=== PATIENT | female | born 1985 | race Caucasian/White ===

== ENCOUNTER 2020-08-29 23:54 | Emergency (ER) | payer BC ==
[~2020-08-29] VITALS: Ht 154.9 cm; Wt 64.4 kg
[2020-08-29 23:58] VITALS: BP 132/65
[2020-08-30] MEDS ORDERED: TDAP [DIPH/PERTUSSIS/TET] 0.5 ML VIAL IM ONE ×2 (00:08→00:30)
== END 2020-08-30 00:20 | disposition home or self-care (01) ==
LOC: ER 23:55
DX: S81.812A Laceration without foreign body, left lower leg, initial encounter (principal); W25.XXXA Contact with sharp glass, initial encounter; Y93.89 Activity, other specified; Y92.89 Other specified places as the place of occurrence of the external cause; Y99.8 Other external cause status
CPT/HCPCS: 90715

== ENCOUNTER 2021-06-14 15:51 | Emergency (ER) | payer BC ==
[~2021-06-14] VITALS: Ht 152.4 cm; Wt 75.3 kg
[2021-06-14] MEDS ORDERED: ONDANSETRON HCL/PF 4 MG/2 ML VIAL ONE (16:25)
[2021-06-14] MEDS ORDERED: KETOROLAC TROMETHAMINE INJ 30 MG/ML VIAL ONE (16:26)
[2021-06-14] MEDS ORDERED: ACETAMINOPHEN 325 MG TABLET ONE (16:26)
[2021-06-14] MEDS ORDERED: KETOROLAC TROMETHAMINE 15 MG/ML VIAL ONE (16:27)
[2021-06-14] MEDS ORDERED: ACETAMINOPHEN 325 MG TABLET PO ONE (16:30)
[2021-06-14] MEDS ORDERED: KETOROLAC TROMETHAMINE INJ 30 MG/ML VIAL IV ONE (16:30)
[2021-06-14] MEDS ORDERED: ONDANSETRON HCL/PF 4 MG/2 ML VIAL IV ONE (16:30)
[2021-06-14] MEDS ORDERED: IV NS 0.9% 1,000 ML BAG IV ONE (16:30)
--- NOTE | 2021-06-14 16:30 | NUR ---
Patient came in to the er c/o fever, recently had 1 week ago, breast discomfort. On room air, breathing evenly and unlabored. Connected to the monitor and pulse ox. kept comfortable, will continue to monitor accordingly.
[2021-06-14 16:43] LABS: BASOPHILS % (AUTO) 0.4 % (0.0-2.0); EOSINOPHILS % (AUTO) 0.3 % (0.0-6.0); HEMATOCRIT 35 % (33-45); HEMOGLOBIN 11.7 g/dL (11.5-14.8); LYMPHOCYTES # (AUTO) 0.4 K/uL (0.8-4.8); LYMPHOCYTES % (AUTO) 4.2 % (20.0-44.0); MEAN CORPUSCULAR HGB CONC 34 g/dl (31.0-36.0); MEAN CORPUSCULAR VOLUME 92 fL (82-100); MONOCYTES # (AUTO) 0.1 K/uL (0.1-1.30); MONOCYTES % (AUTO) 0.9 % (2.0-12.0); NEUTROPHILS % (AUTO) 94.2 % (43.0-81.0); PLATELET COUNT (AUTO) 281 K/uL (150-450); RED BLOOD CELL COUNT(AUTO) 3.81 MIL/uL (4.0-5.2); WHITE BLOOD COUNT (AUTO) 9.5 K/uL (4.3-11.0)
[2021-06-14 16:55] LABS: ALBUMIN 2.7 g/dL (3.4-5.0); BILIRUBIN,DIRECT 0.1 mg/dL (0.0-0.2); BILIRUBIN,TOTAL 0.3 mg/dL (0.2-1.0); CALCIUM, SERUM 8.5 mg/dL (8.5-10.1); CREATININE 0.8 mg/dL (0.6-1.3); POTASSIUM 3.8 mmol/L (3.5-5.1); TOTAL PROTEIN, SERUM 7.2 g/dL (6.4-8.2)
[2021-06-14] MEDS ORDERED: IV NS 0.9% 250 ML IV ONE (17:05)
[2021-06-14] MEDS ORDERED: IOHEXOL-300 100 ML VIAL IV ONE (17:05)
[2021-06-14 17:43] LABS: BILIRUBIN,URINE Negative (NEGATIVE); COLOR,URINE YELLOW (YELLOW); LEUKOCYTE ESTERASE ,URINE Small (NEGATIVE); NITRITE, URINE Negative (NEGATIVE); PH,URINE 6.5 (5.0-8.0); PROTEIN,URINE Negative (NEGATIVE); UGLUCOSE Negative (NEGATIVE); UROBILINOGEN,URINE 0.2 EU/dL (0.2)
[2021-06-14 17:59] LABS: WBC,URINE 21-50 /HPF (0-3)
[2021-06-14 18:00] LABS: BACTERIA,URINE Moderate /HPF (None Seen); SQUAMOUS EPITHELIAL CELL,UR Few /HPF (None Seen)
[2021-06-14] MEDS ORDERED: CEFTRIAXONE 1GM BAG (ER ONLY) 1 GM/50 ML PIGGYBACK IV ONE (19:00)
[2021-06-14] MEDS ORDERED: CEFTRIAXONE 1GM BAG (ER ONLY) 50 ML IV ONE (19:07)
[2021-06-14] MEDS ORDERED: ONDA4TAB11 PO (19:20)
[2021-06-14] MEDS ORDERED: CEPH500C2 PO (19:20)
[2021-06-14 19:28] VITALS: BP 106/71
--- NOTE | 2021-06-14 19:29 | NUR ---
Patient discharged to home in stable condition. Written and verbal after care instructions given. Patient verbalizes understanding of instruction.IV removed. Catheter intact and site benign. Pressure and 4x4 applied to site. No bleeding noted.
== END 2021-06-14 19:29 | disposition home or self-care (01) ==
LOC: ER 15:57
DX: O86.21 Infection of kidney following delivery (principal); N13.6 Pyonephrosis; R00.0 Tachycardia, unspecified; Z20.822 Contact with and (suspected) exposure to COVID-19
CPT/HCPCS: 36415; 74177; 80048; 80076; 81001; 83605; 84703; 85025; 87040 ×2; 87077 ×2; 87086; 87186 ×2; 87426; 96361; 96365; 96375; 99285; C9803; J0696; J1885; J2405; J7030; J7050; Q9967